=== PATIENT | female | born 1980 | race Hispanic/Latino ===

== ENCOUNTER 2017-10-30 12:37 | Emergency (ER) | payer BC ==
[~2017-10-30] VITALS: Ht 154.9 cm; Wt 113.4 kg
[2017-10-30] MEDS ORDERED: ESTRADIOL1 MG PO (12:58)
--- NOTE | 2017-10-30 13:32 | Diagnostic Imaging Report ---
PROCEDURE:HIP 2 VIEW LT - HOPD COMPARISON:None. INDICATIONS:LT HIP PAIN X1 DAY, NO TRAUMA FINDINGS: No evidence of fracture, malalignment, or soft tissue abnormality. Joint spaces are maintained. CONCLUSION: No acute osseous abnormality. Dictated by: BALTAZAR URBAN M.D. on 10/30/2017 at 13:39 Electronically approved by: BALTAZAR URBAN M.D. on 10/30/2017 at 13:39
[2017-10-30] MEDS ORDERED: KETOROLAC TROMETHAMINE 60 MG/2 ML VIAL IM ONE (14:15)
== END 2017-10-30 14:30 | disposition home or self-care (01) ==
LOC: FSED 12:37
DX: M25.552 Pain in left hip (principal); S76.012A Strain of muscle, fascia and tendon of left hip, initial encounter; X50.1XXA Overexertion from prolonged static or awkward postures, initial encounter; Y99.0 Civilian activity done for income or pay; Z85.42 Personal history of malignant neoplasm of other parts of uterus
CPT/HCPCS: 73502 ×2; 99283; J1885

== ENCOUNTER 2021-12-10 17:42 | Emergency (ER) | payer BC ==
[~2021-12-10] VITALS: Ht 154.9 cm; Wt 127.0 kg
[~2021-12-10 17:42] MED LIST: ESTRADIOL1 MG PO
[2021-12-10 19:02] VITALS: BP 171/83
== END 2021-12-10 19:03 | disposition home or self-care (01) ==
LOC: FSED 18:07
DX: R05.9 Cough, unspecified (principal)
CPT/HCPCS: 99283